=== PATIENT | male | born 1955 | race Caucasian/White ===

== ENCOUNTER 2023-01-18 20:40 | Emergency (ER) | payer OTHER, SELFPAY ==
[2023-01-18] VITALS (9 sets, daily range): BP systolic 135–152; BP diastolic 75–97; PULSE 58–73; RESP 12–22; TEMP 36.7; O2SAT 95–100
--- NOTE | ~2023-01-18 | CT_ITS ---
EXAMINATION: CT lumbar spine wo con DATE: 01/18/2023 22:27 INDICATION: Left-sided low back pain. TECHNIQUE: Computed tomography (CT) of the lumbar spine was performed without intravenous contrast. A utomated exposure control and iterative reconstruction technique were employed. The dose-length produ ct was 775.24 mGy-cm. COMPARISON: None FINDINGS: There is a 3 mm stone in left kidney. There is an 11 mm mass in left kidney measuring soft tissue attenuation. There is diffuse hepatic steatosis. There is 4 degrees levocurvature of lumbar sp ine. There is 3 mm anterolisthesis of L4 on L5 and 3 mm retrolisthesis of L5 on S1. Vertebral body he ights are normal. There is mildly decreased disc height at L4-L5 and moderately decreased disc height at L5-S1. The following disc levels are specifically discussed: L1-L2: The disc does not extend beyond the endplate margin. There is mild bilateral facet joint osteo arthritis. There is no neural foraminal stenosis. There is no central canal stenosis. L2-L3: The disc does not extend beyond the endplate margin. There is mild bilateral facet joint osteo arthritis. There is no neural foraminal stenosis. There is no central canal stenosis. L3-L4: The disc is bulging. There is mild bilateral facet joint osteoarthritis. There is mild bilater al neural foraminal stenosis. There is no central canal stenosis. L4-L5: The disc is bulging. There is severe bilateral facet joint osteoarthritis. There is mild bilat eral neural foraminal stenosis. There is mild central canal stenosis. L5-S1: The disc is bulging. There is moderate bilateral facet joint osteoarthritis. There is mild erica ateral neural foraminal stenosis. There is mild central canal stenosis. IMPRESSION: 1. Moderate lumbar spondylosis. 2. 11 mm left kidney mass, which may be a hemorrhagic cyst or less likely a neoplasm. Abdomen CT with out and with contrast is recommended. Reviewed, dictated and finalized at location A. IMPRESSION: 1. Moderate lumbar spondylosis. 2. 11 mm left kidney mass, which may be a hemorrhagic cyst or less likely a niesha plasm. Abdomen CT without and with contrast is recommended.
[2023-01-18] MEDS: CYCLOBENZAPRINE HCL 10 MG TABLET PO (22:08)
[2023-01-18] MEDS: KETOROLAC 30 MG/ML VIAL (*BKC) IM (22:08)
[2023-01-18] MEDS: LIDOCAINE 5% PATCH 1 PATCH TRANSDERM (22:10)
[2023-01-18] MEDS: HYDROcodone/acetaminophen (*CRX) 5-325 MG TABLET 1 TAB PO (23:38)
[2023-01-19] VITALS (8 sets, daily range): BP systolic 126–139; BP diastolic 74–79; PULSE 49–54; RESP 11–25; TEMP 36.4; O2SAT 52–98
--- NOTE | 2023-01-19 00:10 | ED.BACK ---
HPI - Back Pain/Injury General Chief Complaint: Back Pain/Injury Stated Complaint: back pain Time Seen by Provider: 01/18/23 20:47 History of Present Illness HPI Narrative: Patient presents to the emergency department from home with his spouse. Patient developed acute left low back pain yesterday when he woke up. Denies any injuries. Denies twisting or bending wrong. Denies history of pain similar to this in the past. Patient also denies lower extremity weakness numbness or urinary symptoms. Took ibuprofen yesterday and this morning without improvement of his pain. Patient states pain is excruciating when he stands up or walks around. Somewhat relieved when laying in reclining chair Related Data Allergies Allergy/AdvReac Type Severity Reaction Status Date / Time No Known Allergies Allergy Verified 01/18/23 22:49 Review of Systems Review of Systems: CONSTITUTIONAL: Denies fever, chills, or sweats. EYES: Denies visual changes, redness, or discharge. ENT: Denies rhinorrhea, congestion, sore throat, or otalgia. CARDIOVASCULAR: Denies chest pain, palpitations, or edema. RESPIRATORY: Denies cough or dyspnea. GASTROINTESTINAL: Denies abdominal pain, nausea, vomiting, or diarrhea. GENITOURINARY: Denies dysuria or hematuria. SKIN: Denies rash or itching. MUSCULOSKELETAL: Positive for back pain Exam Narrative: GENERAL: Well-appearing, well-nourished, and in no acute distress. HEAD: Normocephalic, atraumatic. EYES: PERRLA and EOMI. ENT: Nares clear, no rhinorrhea or epistaxis. Mucous membranes moist. NECK: Supple. CHEST: Clear to auscultation. No respiratory distress. HEART: Regular rate and rhythm. ABDOMEN: Soft, nontender, nondistended. EXTREMITIES: Pain with lifting of left leg. No edema. SKIN: Warm, dry, no rash. NEURO: No focal deficits. Alert and oriented x3. PSYCH: Normal mood and affect. Course Course Emergency Course: Patient's pain is very positional. Worse with any movement. Also point tender left low back consistent with musculoskeletal pain. P.o. medications including lidocaine patch Vicodin Flexeril and steroids have not improved his pain. IM Dilaudid ordered. CT lumbar spine pending Vital Signs Vital signs: Vital Signs Temperature 36.7 C 09/04/23 20:50 Pulse Rate 73 01/18/23 20:50 Respiratory Rate 18 01/18/23 20:50 Blood Pressure 152/89 H 01/18/23 20:50 Pulse Oximetry 100 01/18/23 20:50 Oxygen Delivery Room Air 01/18/23 20:50 Temperature 36.7 C 01/18/23 20:50 Pulse Rate 72 01/18/23 21:57 Respiratory Rate 12 01/18/23 21:57 Blood Pressure 137/79 01/18/23 21:57 Pulse Oximetry 97 01/18/23 21:57 Oxygen Delivery Room Air 01/18/23 20:50 MDM - Back Pain/Injury MDM Narrative Medical decision making narrative: Patient's pain is significantly improved. He is able to move around in the bed and get up as needed. CT lumbar spine shows no acute fracture or dislocation. Mild retrolisthesis of L4 on L5 resulting in slight unroofing of the disc posteriorly without significant canal or foraminal stenosis incidental finding of hyperdense lesion on left kidney. Will discharge to home and patient advised to follow-up for left kidney finding Discharge Plan Discharge Clinical Impression: Kidney lesion Strain of lumbar region Qualifiers: Encounter type: initial encounter Qualified Code(s): S39.012A - Strain of muscle, fascia and tendon of lower back, initial encounter Patient Disposition: Home, Self-Care Condition: Stable Instructions: Antibiotic Form, Acute Low Back Pain (ED), Lower Back Exercises (ED) Additional Instructions: Continue ibuprofen every 6 hours Steroids as prescribed Flexeril and/or Vicodin for breakthrough pain do not drive or work after taking IcyHot or Biofreeze [id number] lidocaine patches Follow-up with your primary care provider for kidney ultrasound Return to the emergency department for any extremity weakness or u
[2023-01-19] MEDS: HYDROmorphone HCL INJ (*CRX) 1 MG/ML SYR 2 MG IM (00:19)
== END 2023-01-19 01:45 | disposition home or self-care (01) ==
PROVIDERS: Emergency Provider Emergency Medicine
DX: S39.012A Strain of muscle, fascia and tendon of lower back, initial encounter (principal); X58.XXXA Exposure to other specified factors, initial encounter
CPT/HCPCS: 72131; 96372; 99284; A9270; J1100; J1170; J1885

== ENCOUNTER 2023-02-08 19:06 | Emergency (ER) | payer OTHER, SELFPAY ==
--- NOTE | ~2023-02-08 | CT_ITS ---
EXAMINATION: CT cervical spine wo con DATE: 02/09/2023 00:42 INDICATION: Left neck pain. TECHNIQUE: Computed tomography (CT) of the cervical spine was performed without intravenous contrast. Automated exposure control and iterative reconstruction technique were employed. The dose-length pro duct was 520.28 mGy-cm. COMPARISON: None FINDINGS: There are changes of left posterior craniotomy. There is 3 degrees dextrocurvature of cervi dewey spine. Vertebral body heights are normal. There is mildly decreased disc height at C4-C5 and mode rately decreased disc height at C5-C6 and C6-C7. The following disc levels are specifically discussed : C2-C3: There is mild bilateral uncovertebral joint osteoarthritis. There is mild right and severe lef t facet joint osteoarthritis. There is mild left neural foraminal stenosis. There is no central canal stenosis. C3-C4: There is mild right uncovertebral joint osteoarthritis. There is severe bilateral facet joint osteoarthritis. There is mild bilateral neural foraminal stenosis. There is mild central canal stenos is. C4-C5: There is mild bilateral uncovertebral joint osteoarthritis. There is severe right and moderate left facet joint osteoarthritis. There is mild right neural foraminal stenosis. There is mild centra l canal stenosis. C5-C6: There is mild right and severe left uncovertebral joint osteoarthritis. There is moderate bila teral facet joint osteoarthritis. There is mild bilateral neural foraminal stenosis. There is mild ce ntral canal stenosis. C6-C7: There is severe bilateral uncovertebral joint osteoarthritis. There is moderate right and laurita re left facet joint osteoarthritis. There is mild bilateral neural foraminal stenosis. There is mild central canal stenosis. C7-T1: There is no uncovertebral joint osteoarthritis. There is mild bilateral facet joint osteoarthr itis. There is no neural foraminal stenosis. There is no central canal stenosis. IMPRESSION: 1. No fracture. 2. Moderate cervical spondylosis. Reviewed, dictated and finalized at location A.
[2023-02-08 19:07] VITALS: BP 168/115; PULSE 68; RESP 17; TEMP 36.7; O2SAT 100
[2023-02-08 21:25] VITALS: BP 146/84; PULSE 71; RESP 20; TEMP 36.7; O2SAT 99
[2023-02-08 22:45] VITALS: BP 161/88; PULSE 67; RESP 18; O2SAT 100
[2023-02-09] MEDS: ACETAMINOPHEN 500 MG TABLET 1000 MG PO (00:01)
[2023-02-09] MEDS: diazePAM INJ (*CRX) 10 MG/2 ML SYRINGE 2 MG IV PUSH (00:02)
--- NOTE | 2023-02-09 00:04 | ED.NECK ---
HPI - Neck Pain/Injury General Chief Complaint: Neck Pain/Injury Stated Complaint: neck pain/spasm (has MS) Time Seen by Provider: 02/08/23 23:08 Source: patient Mode of arrival: ambulatory Limitations: no limitations History of Present Illness HPI Narrative: Patient is a 67-year-old male who presents to the ED with complaints of left-sided neck pain. Patient reports a history of MS, but states he has not been on medication or infusions for 10 or so years. He was seen in the ED within the last couple weeks for lower back spasms. He denies any recent unusual activity, heavy lifting, strenuous activity. He developed pain and spasms in his left-sided neck yesterday, which have persisted since then. Worse with any type of movement, particularly turning head to the left. He was prescribed Flexeril and [place] for his back spasms and has been taking these for the neck pain without much relief. He last took Flexeril at noon. He denies any pain radiating down his arms, numbness or tingling down the arms, weakness of arms, headache, vision changes, recent injury. Denies chest pain or difficulty breathing. Patient is scheduled to see a new neurologist with an MS clinic on Wednesday. Related Data Allergies Allergy/AdvReac Type Severity Reaction Status Date / Time No Known Allergies Allergy Verified 02/08/23 22:51 Review of Systems Review of Systems: CONSTITUTIONAL: Denies fever, chills, or sweats. MUSCULOSKELETAL: See HPI. NEUROLOGIC: See HPI. All systems reviewed & are unremarkable except as noted in HPI and below PMFSH Past Medical History Medical History (Updated 02/09/23 @ 02:30 by Yessenia Field PA-C) Multiple sclerosis Exam Narrative: GENERAL: Mildly uncomfortable appearing, well-nourished, non-toxic, in no acute distress. HEAD: Normocephalic, atraumatic. NECK: Supple. Patient holding neck in fixed position. Tenderness throughout the left-sided paraspinal musculature and into trapezius muscle. Palpable muscle tension. Difficulty turning or rotating neck due to pain. No significant midline spinal tenderness. No palpable deformities. RESPIRATORY: Airway patent, respirations nonlabored. Clear to auscultation bilaterally, no rales, rhonchi, wheezing. CARDIOVASCULAR: Regular rate and rhythm without murmurs, rubs, or gallops. Radial pulses 2+ and equal bilaterally. ABDOMINAL: Soft, nontender, nondistended, no hepatosplenomegaly. Normoactive BS. MUSCULOSKELETAL: Moves all extremities. Strength/ROM intact without gross deformities. No thoracic or lumbar spinal tenderness. SKIN: Warm, dry, normal color. No rashes. NEURO: A&O X3. Speech clear. Cranial nerves II-XII grossly intact. Steady gait. No ataxic movements. No focal neurologic deficits. Equal half section ironer strength bilaterally. PSYCHIATRIC: Appropriate mood and affect. Normal interaction. Course Vital Signs Vital signs: Vital Signs Temperature 98.1 F 02/08/23 19:07 Pulse Rate 68 02/08/23 19:07 Respiratory Rate 17 02/08/23 19:07 Blood Pressure 168/115 H 02/08/23 19:07 Pulse Oximetry 100 02/08/23 19:07 Oxygen Delivery Room Air 02/08/23 19:07 Temperature 98.0 F 02/08/23 21:25 Pulse Rate 60 02/09/23 03:16 Respiratory Rate 18 02/09/23 03:16 Blood Pressure 126/81 02/09/23 03:16 Pulse Oximetry 96 02/09/23 03:16 Oxygen Delivery Room Air 02/08/23 19:07 MDM - Neck Pain/Injury MDM Narrative Medical decision making narrative: Patient presented to ED with 2-day history of left-sided neck pain and spasms. History of MS. Patient mildly uncomfortable appearing upon my exam, though vital stable. Neurologically intact. No focal deficits. No weakness or numbness. No radicular sx's. Will attempt pain control and obtain imaging. CT cervical spine w/o abnormalities. On reevaluation, patient feeling much better with supportive therapy. Pain improved. I did discuss case with Dr. Rivas, neurology, who advised can admit for
[2023-02-09] MEDS: KETOROLAC 30 MG/ML VIAL (*BKC) IV PUSH (00:05)
[2023-02-09 01:27] VITALS: BP 145/88; PULSE 68; O2SAT 96
--- NOTE | 2023-02-09 01:43 | PC.NURSE ---
Called DR. Rivas at [phone] she answered at [phone]
[2023-02-09 03:16] VITALS: BP 126/81; PULSE 60; RESP 18; O2SAT 96
== END 2023-02-09 03:16 | disposition home or self-care (01) ==
PROVIDERS: Emergency Provider Physician Assistant; PCP Emergency Medicine
DX: S16.1XXA Strain of muscle, fascia and tendon at neck level, initial encounter (principal); X58.XXXA Exposure to other specified factors, initial encounter
CPT/HCPCS: 72125; 96374; 96375; 99284; A9270; J1100; J1885; J3360